=== PATIENT | female | born 1980 | race Caucasian/White ===

== ENCOUNTER 2018-06-12 22:27 | Inpatient (IN) | payer MEDICAID ==
[2018-06-12] MEDS ORDERED: LACTATED RINGER'S 1,000 ML IV (23:32)
[2018-06-13] MEDS ORDERED: BUTORPHANOL 2 MG INJ IV
[2018-06-13] MEDS ORDERED: IBUPROFEN 600 MG TAB PO
[2018-06-13] MEDS ORDERED: LIDOCAINE 1% (MPF) 30 ML INJ INJ
[2018-06-13] MEDS: LACTATED RINGER'S 1,000 ML IV ×2 (01:42→12:15)
[2018-06-13 01:48] LABS: ADD MAN DIFF? NO
[2018-06-13 01:52] LABS: WHITE BLOOD COUNT 9.8 10^3/ul (4.8-10.8)
[2018-06-13 01:52] LABS: BASOPHILS % 0.3 % (0.0-2.0); EOSINOPHILS % 0.4 % (0.0-7.0); HEMATOCRIT 35.3 % (37.0-47.0); HEMOGLOBIN 11.4 g/dl (12.0-16.0); LYMPHOCYTES # 1.7 10^3/ul (0.8-2.9); LYMPHOCYTES % 17.3 % (15.0-51.0); MEAN CORPUSCULAR HEMOGLOBIN 27.1 pg (29.0-33.0); MEAN CORPUSCULAR HGB CONC 32.3 g/dl (32.0-37.0); MEAN CORPUSCULAR VOLUME 83.8 fl (82.0-101.0); MEAN PLATELET VOLUME 10.8 fl (7.4-10.4); MONOCYTE # 0.6 10^3/ul (0.3-0.9); MONOCYTES % 6.4 % (0.0-11.0); NEUTROPHIL # 7.3 10^3/ul (1.6-7.5); NEUTROPHILS % 74.6 % (39.0-77.0); PLATELET COUNT 179 10^3/UL (140-415); RED BLOOD COUNT 4.21 10^6/ul (4.20-5.40); RED CELL DISTRIBUTION WIDTH 14.1 % (11.5-14.5)
[2018-06-13 02:45] LABS: HEPATITIS B SURFACE ANTIGEN NEGATIVE (NEGATIVE)
[2018-06-13 02:51] LABS: INR 0.83; PARTIAL THROMBOPLASTIN TIME 20.5 Sec (23.0-35.0); PROTIME 11.5 Sec (11.9-14.9); PT RATIO 0.9
[2018-06-13] MEDS: OXYTOCIN 30 UNITS/LR 500 ML IV ×2 (04:51→17:01)
[2018-06-13] MEDS ORDERED: FENTAnyl 2MCG/ML-ROPIV 0.2% 100 ML (08:19)
[2018-06-13] MEDS ORDERED: NALOXONE (0.4 MG/ML) INJ IV (09:30)
[2018-06-13] MEDS ORDERED: ONDANSETRON 4 MG INJ IV (09:30)
[2018-06-13] MEDS ORDERED: FENTAnyl 2MCG/ML-ROPIV 0.2% 100 ML BAG EPI (09:30)
[2018-06-13 15:03] LABS: RAPID PLASMA REAGIN NONREACTIVE (NR)
[2018-06-13] MEDS ORDERED: MAGNESIUM HYDROXIDE 30ML CUP PO (16:30)
[2018-06-13] MEDS ORDERED: METHYLERGONOVINE 0.2 MG INJ IM ×2 (16:30)
[2018-06-13] MEDS ORDERED: MISOPROSTOL 200 MCG TAB PR ×2 (16:30)
[2018-06-13] MEDS ORDERED: ACETAMINOPHEN 325 MG TAB PO (16:30)
[2018-06-13] MEDS ORDERED: HYDROCODONE/APAP (5/325) TAB PO (16:30)
[2018-06-13] MEDS ORDERED: ZOLPIDEM 5 MG TAB PO (16:30)
[2018-06-13] MEDS ORDERED: DIPHENHYDRAMINE 25 MG CAP PO (16:30)
[2018-06-13] MEDS ORDERED: CARBOPROST 250 MCG INJ IM ×2 (16:30)
[2018-06-13] MEDS ORDERED: OXYTOCIN 30 UNITS/LR 500 ML IV ×5 (16:30)
[2018-06-13] MEDS ORDERED: SENNA/DOCUSATE NA (8.6MG/50MG) TAB PO (16:30)
[2018-06-13] MEDS: LACTATED RINGER'S 1,000 ML IV* (16:30)
[2018-06-13] MEDS: IBUPROFEN 800 MG TAB PO ×2 (17:50→23:59)
[2018-06-13] MEDS: LANOLIN HPA 1 PKT TOP (17:50)
[2018-06-13] MEDS: BENZOCAINE 20% 56 ML SPRAY TOP (17:51)
[2018-06-13] MEDS: WITCH HAZEL/GLYCERIN PAD PR (17:51)
[2018-06-14] MEDS: LACTATED RINGER'S 1,000 ML IV* (00:30)
[2018-06-14] MEDS: IBUPROFEN 800 MG TAB PO ×3 (05:37→17:48)
[2018-06-14 08:40] LABS: ADD MAN DIFF? NO
[2018-06-14 08:46] LABS: BASOPHILS % 0.2 % (0.0-2.0); EOSINOPHILS % 0.3 % (0.0-7.0); HEMATOCRIT 36.1 % (37.0-47.0); HEMOGLOBIN 11.9 g/dl (12.0-16.0); LYMPHOCYTES # 1.6 10^3/ul (0.8-2.9); LYMPHOCYTES % 14.2 % (15.0-51.0); MEAN CORPUSCULAR HEMOGLOBIN 27.5 pg (29.0-33.0); MEAN CORPUSCULAR VOLUME 83.4 fl (82.0-101.0); MEAN PLATELET VOLUME 10.7 fl (7.4-10.4); MONOCYTE # 0.6 10^3/ul (0.3-0.9); MONOCYTES % 5.8 % (0.0-11.0); NEUTROPHIL # 8.6 10^3/ul (1.6-7.5); NEUTROPHILS % 78.9 % (39.0-77.0); PLATELET COUNT 204 10^3/UL (140-415); RED BLOOD COUNT 4.33 10^6/ul (4.20-5.40); RED CELL DISTRIBUTION WIDTH 14.2 % (11.5-14.5)
[2018-06-14] MEDS: LANOLIN HPA 1 PKT TOP (10:12)
[2018-06-15] MEDS: IBUPROFEN 800 MG TAB PO ×3 (00:24→12:06)
[2018-06-15] MEDS: VARICELLA VACCINE LIVE/PF 1,350 UNIT/0.5 ML ML SC* (09:00)
[2018-06-15] MEDS: MEASLES,MUMPS,RUBELLA VACCINE INJ SC* (09:00)
[2018-06-15] MEDS: DIPHTH/TET/ACEL PERTUSS (ADULT) 0.5 ML VIAL IM* (13:24)
== END 2018-06-15 14:05 | disposition home or self-care (01) | DRG 807 ==
LOC: OBT 22:27 → L-D 06-13 00:13 → PP1 06-13 16:22 → L-D 22:51 → OBT 22:30 → L-D 22:30
PROVIDERS: Obstetrics & Gynecology
PROC: 10E0XZZ Delivery of Products of Conception, External Approach (ICD-10-PCS; principal; 2018-06-13)
DX: O80 Encounter for full-term uncomplicated delivery (principal); Z37.0 Single live birth; Z3A.39 39 weeks gestation of pregnancy; Z23 Encounter for immunization
CPT/HCPCS: 62319; 76815; 85025; 85610; 85730; 86592; 86850; 86900; 86901; 87340; 90686; 90715; 90716